=== PATIENT | male | born 1965 | race Caucasian/White ===

== ENCOUNTER 2017-07-02 19:27 | Emergency (ER) | payer SELFPAY ==
[~2017-07-02] VITALS: Ht 190.5 cm; Wt 68.0 kg
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
[2017-07-02] MEDS ORDERED: CREON DR 24,001 EACH PO (19:47)
[2017-07-02] MEDS ORDERED: HYDROCODON-ACE1 EAC7 PO (19:47)
[2017-07-02] MEDS ORDERED: OMEPRAZOLE40 M1 PO (19:48)
[2017-07-02] MEDS ORDERED: THIAMINE HCL100 M1 PO (19:48)
[2017-07-02] MEDS ORDERED: AMOXICILLIN500 M1 PO (19:48)
[2017-07-02] MEDS ORDERED: GABAPENTIN300 M2 PO (19:48)
[2017-07-02] MEDS ORDERED: NOVOLOG FL100 UNIT/1 (19:49)
[2017-07-02] MEDS ORDERED: VITAMIN B-121000 MCG PO (19:49)
[2017-07-02] MEDS ORDERED: LANTUS100 U/ML (19:49)
== END 2017-07-03 02:36 | disposition home or self-care (01) ==
LOC: SED 19:27
DX: S09.90XA Unspecified injury of head, initial encounter (principal); S02.40DA Maxillary fracture, left side, initial encounter for closed fracture; S02.32XA Fracture of orbital floor, left side, initial encounter for closed fracture; F17.200 Nicotine dependence, unspecified, uncomplicated; E11.9 Type 2 diabetes mellitus without complications; K74.60 Unspecified cirrhosis of liver; Z88.5 Allergy status to narcotic agent; Z79.899 Other long term (current) drug therapy; Y08.89XA Assault by other specified means, initial encounter
CPT/HCPCS: 70150; 70450; 70486; 72125; 99284